=== PATIENT | female | born 1930 | race Caucasian/White ===

== ENCOUNTER → 2017-10-23 | Outpatient (CLI) | payer OTHER ==
[~2017-10-23] MED LIST: ENAL20; Enulose10 GM/15 M PO; FURO100EL PO; HYDCHL50; LEVSOD125; LINZESS145 MCG PO; LORA1; LOSHYD100 PO; NEBI10 PO; POTA8; Percocet 5-3251 EACH PO; SPIR25 PO; WARF2.5 PO; ZOLP12.5
[2017-10-23 14:39] LABS: Bun/Creatinine Ratio 23.4 (12.0-20.0); Calcium, Blood 9.7 mg/dL (8.5-10.1); Creatinine, Blood 1.07 mg/dL (0.40-1.00); Potassium, Blood 4.7 mmol/L (3.5-5.5)
== END | disposition home or self-care (01) ==
LOC: LAB 13:28
PROVIDERS: Internal Medicine
DX: E78.5 Hyperlipidemia, unspecified (principal); E87.1 Hypo-osmolality and hyponatremia; E03.9 Hypothyroidism, unspecified
CPT/HCPCS: 80048

== ENCOUNTER → 2017-12-05 | Outpatient (CLI) | payer OTHER | LOC: LAB 10:24 → LAB SHORT 10:24 | DX: N39.0 Urinary tract infection, site not specified (principal) | CPT/HCPCS: 87086; 87147 ==

== ENCOUNTER → 2018-11-01 | Outpatient (CLI) | payer OTHER | END | disposition home or self-care (01) | LOC: LAB 18:33 → LAB SHORT 18:33 | DX: R30.0 Dysuria (principal) | CPT/HCPCS: 87086; 87147 ==

== ENCOUNTER 2019-08-01 22:10 | Emergency (ER) | payer OTHER ==
[~2019-08-01] VITALS: Ht 167.6 cm; Wt 85.7 kg
[2019-08-01 22:36] LABS: Source, Urine Clean Catch
[2019-08-01 22:38] LABS: Bilirubin, Urine Neg (Neg); Blood, Urine 5+ (Neg); Glucose Qualitative, Urine Neg (Neg); Ketones, Urine 1+ (Neg); Leukocyte Esterase, Urine 1+ (Neg); Nitrite, Urine Neg (Neg); Protein, Urine 4+ (Neg); Specific Gravity, Urine 1.015 (1.003-1.022); Urobilinogen, Urine NORM (Normal); pH, Urine 6.5 (5.0-8.0)
[2019-08-01 22:40] LABS: Appearance, Urine Cloudy (Clear); Color, Urine Red (P-Yellow)
[2019-08-01 22:47] LABS: Bacteria Few /hpf; Red Blood Cells, Urine TNTC /hpf (0-2); Squamous Epithelial Cells Rare /hpf (Few)
[2019-08-01] MEDS ORDERED: Cipro500 MG PO (23:50)
== END 2019-08-02 00:01 | disposition home or self-care (01) ==
LOC: ER 22:10
PROVIDERS: Emergency Medicine
DX: N39.0 Urinary tract infection, site not specified (principal); I11.0 Hypertensive heart disease with heart failure; I50.9 Heart failure, unspecified; F41.9 Anxiety disorder, unspecified; Z88.0 Allergy status to penicillin; Z79.899 Other long term (current) drug therapy
CPT/HCPCS: 81001; 87086; 87147; 99283

== ENCOUNTER 2021-09-11 15:51 | Inpatient (IN) | payer OTHER ==
[~2021-09-11] VITALS: Ht 162.6 cm; Wt 72.6 kg
[~2021-09-11 15:51] MED LIST changes: +Bystolic20 MG PO; +Cipro500 MG PO; +EUTHYROX125 MCG PO; -LEVSOD125; -NEBI10 PO; -SPIR25 PO; +SPIR50 PO; +ZOLP10 PO; -ZOLP12.5
[2021-09-11 16:48] LABS: BASOPHILS ABSOLUTE AUTO 0.04 K/mm3 (0.00-0.23); BASOPHILS PERCENT AUTO 1 % (0-2); EOSINOPHILS ABSOLUTE AUTO 0.02 K/mm3 (0.00-0.68); EOSINOPHILS PERCENT AUTO 0 % (0-6); IMMATURE GRAN ABSOLUTE AUTO 0.03 K/mm3 (0.00-0.10); IMMATURE GRAN PERCENT AUTO 1 % (0-1); LYMPHOCYTES ABSOLUTE AUTO 0.67 K/mm3 (0.84-5.20); LYMPHOCYTES PERCENT AUTO 11 % (21-46); MONOCYTES ABSOLUTE AUTO 0.35 K/mm3 (0.16-1.47); MONOCYTES PERCENT AUTO 6 % (4-13); Mean Corpuscular HGB 32.7 pg (26.0-34.0); Mean Corpuscular HGB Conc 34.2 g/dL (31.5-36.5); Mean Corpuscular Volume 96 fL (80-100); NEUTROPHILS ABSOLUTE AUTO 5.25 K/mm3 (1.96-9.15); NEUTROPHILS PERCENT AUTO 83 % (41-73); Platelet Count 107 K/mm3 (150-400); RDW Coefficient Variation 14.2 % (11.7-14.2); RDW Standard Deviation 49.8 fL (35.1-46.3); Red Blood Cell Count 3.98 M/mm3 (3.80-5.20); White Blood Cell Count 6.36 K/mm3 (4.00-11.30)
[2021-09-11 16:51] LABS: Mean Platelet Volume 13.1 fL (9.1-12.4)
[2021-09-11 16:53] LABS: International Normalized Ratio 2.92; Prothrombin Time Results 28.6 Sec (9.7-11.5)
[2021-09-11 17:00] LABS: Anion Gap 10 mmol/L (6-16); Blood Urea Nitrogen 38 mg/dL (8-24); Bun/Creatinine Ratio 29.5 (12.0-20.0); CO2, Blood 24 mmol/L (21-32); Calcium, Blood 9.5 mg/dL (8.5-10.1); Chloride, Blood 92 mmol/L (98-108); Creatinine, Blood 1.29 mg/dL (0.40-1.00); Ethanol (Alcohol), Blood, Med <3 mg/dL; Glomerular Filtration Rate 39 (60-); Glucose, Blood 131 mg/dL (70-99); Potassium, Blood 5.3 mmol/L (3.5-5.5); Sodium, Blood 126 mmol/L (136-145); Troponin I 0.414 ng/mL (0.000-0.040)
[2021-09-11 17:07] LABS: Source, Urine Clean Catch
[2021-09-11 17:12] LABS: Appearance, Urine Hazy (Clear); Bilirubin, Urine Neg (Neg); Blood, Urine 1+ (Neg); Color, Urine Yellow (P-Yellow); Glucose Qualitative, Urine Neg (Neg); Ketones, Urine Neg (Neg); Leukocyte Esterase, Urine Neg (Neg); Nitrite, Urine Neg (Neg); Protein, Urine Neg (Neg); Specific Gravity, Urine 1.015 (1.003-1.022); Urobilinogen, Urine NORM (Normal)
[2021-09-11 17:23] LABS: U Amphetamine Screen Not Detected; U Barbituate Screen Not Detected; U Benzodiazapine Screen DETECTED; U Buprenorphine Screen Not Detected; U Cannabinoids Screen Not Detected; U Cocaine Screen Not Detected; U Methadone Screen Not Detected; U Methamphetamine Screen Not Detected; U Opiates Screen Not Detected; U Oxycodone Screen Not Detected; U Phencyclidine Screen Not Detected; U Propoxyphene Screen Not Detected
[2021-09-11 17:35] LABS: Bacteria Many /hpf; Red Blood Cells, Urine 0-2 /hpf (0-2); Squamous Epithelial Cells Many /hpf (Few); White Blood Cells, Urine Rare /hpf (0-5)
[2021-09-11] MEDS ORDERED: Ativan1 MG PO (22:38)
[2021-09-11] MEDS ORDERED: TRAM50 PO (22:40)
[2021-09-11] MEDS ORDERED: LOSARTAN POTAS100 M1 PO (23:13)
--- NOTE | 2021-09-12 07:30 | NUR ---
SHIFT SUMMARY PT WAS A NEW ADMIT DURING THE NIGHT. 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 PT IS A&O X 3, BEDREST. TELE SHOWED AFIB IN THE 50-60S. VITAL SIGNS OTHERWISE STABLE. PT BLE HAVE 4+ PITTING EDEMA. NO C/O ACUTE PAIN, NAUSEA OR SOB. NO OTHER ACUTE CHANGES IN PT CONDITION NOTED SINCE ADMISSION. REPORT GIVEN TO ONCOMING RN.
[2021-09-12 08:47] LABS: BASOPHILS ABSOLUTE AUTO 0.03 K/mm3 (0.00-0.23); BASOPHILS PERCENT AUTO 1 % (0-2); EOSINOPHILS ABSOLUTE AUTO 0.02 K/mm3 (0.00-0.68); EOSINOPHILS PERCENT AUTO 0 % (0-6); Hematocrit 34.9 % (33.0-51.0); Hemoglobin 11.9 g/dL (11.5-16.0); IMMATURE GRAN ABSOLUTE AUTO 0.01 K/mm3 (0.00-0.10); IMMATURE GRAN PERCENT AUTO 0 % (0-1); LYMPHOCYTES ABSOLUTE AUTO 1.09 K/mm3 (0.84-5.20); LYMPHOCYTES PERCENT AUTO 23 % (21-46); MONOCYTES ABSOLUTE AUTO 0.52 K/mm3 (0.16-1.47); MONOCYTES PERCENT AUTO 11 % (4-13); Mean Corpuscular HGB Conc 34.1 g/dL (31.5-36.5); Mean Corpuscular Volume 97 fL (80-100); NEUTROPHILS ABSOLUTE AUTO 3.03 K/mm3 (1.96-9.15); NEUTROPHILS PERCENT AUTO 65 % (41-73); Platelet Count 107 K/mm3 (150-400); RDW Coefficient Variation 14.4 % (11.7-14.2); RDW Standard Deviation 50.8 fL (35.1-46.3); Red Blood Cell Count 3.61 M/mm3 (3.80-5.20)
[2021-09-12 09:06] LABS: International Normalized Ratio 3.11; Prothrombin Time Results 30.3 Sec (9.7-11.5)
[2021-09-12 09:30] LABS: Alanine Aminotransfer (ALT/SGP 23 U/L (12-78); Albumin, Blood 3.3 g/dL (3.4-5.0); Albumin/Globulin Ratio 0.8 (0.8-1.8); Alk Phos 80 U/L (50-136); Anion Gap 8 mmol/L (6-16); Aspartate Aminotrans (AST/SGOT 32 U/L (12-37); Bilirubin, Total 2.2 mg/dL (0.1-1.0); Blood Urea Nitrogen 40 mg/dL (8-24); Bun/Creatinine Ratio 29.2 (12.0-20.0); CHOL/HDL RATIO 2.1; CO2, Blood 28 mmol/L (21-32); Calcium, Blood 9.5 mg/dL (8.5-10.1); Chloride, Blood 94 mmol/L (98-108); Cholesterol 130 mg/dL (50-200); Creatinine, Blood 1.37 mg/dL (0.40-1.00); Globulin, Blood 3.9 g/dL (2.2-4.0); Glomerular Filtration Rate 36 (60-); Glucose, Blood 122 mg/dL (70-99); HDL Cholesterol 63 mg/dL (>39); LDL/HDL RATIO 0.9; Low Density Lipoprotein Chol 57 mg/dL (0-110); Potassium, Blood 4.2 mmol/L (3.5-5.5); Sodium, Blood 130 mmol/L (136-145); Total Protein, Blood 7.2 g/dL (6.4-8.2); Triglycerides 48 mg/dL (30-160); Very Low Density Lipoprot Chol 9 mg/dL (6-32)
[2021-09-12 13:12] LABS: Free Thyroxine 1.38 ng/dL (0.70-1.60); Triiodothyronine, Free 0.84 pg/mL (2.18-3.98)
--- NOTE | 2021-09-12 16:47 | NUR ---
SHIFT SUMMARY PT IS A&O, PLEASANT AND CO-OP WITH CARE. ADMITTED FOR STROKE, WHICH APPEARS TO HAVE RESOLVED. NO NEUR DEFICITS NOTED TODAY. SPEECH EVAL CLEAR. PT ABLE TO WORK WITH PT/OT. DR HAWKINS IN TO SEE PT. 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 CARDIOLOGY CONSULT ORDERED. DR CORBIN TO SEE PT, HOPEFULLY TODAY; TROPONIN ELEVATED, BUT TRENDING DOWN. PT'S BLE'S VERY SWOLLEN; 4+ EDEMA. PT REPORTED THEY HAVE BEEN LIKE THIS FOR ABOUT A YEAR. BNP ELEVATED AT 619. PT RESTING QUIETLY WATCHING TV. DENIED FURTHER NEEDS. CALL LT IN REACH.
[2021-09-12] MEDS ORDERED: TORSE20 PO (18:36)
[2021-09-12] MEDS ORDERED: Ventolin/Prove6.7 GM INH (18:39)
--- NOTE | 2021-09-13 04:41 | NUR ---
WET CROWN BLOCKING OPERATOR SUMMARY PATIENT HAD A FAIR SHIFT. SHE IS ALERT AND ORIENTED. SHE HAD A STABLE V/S ALL THROUGH THE NIGHT. NO COMPLAINTS OVERNIGHT. WILL CONTINUE TO MONITOR HER.
[2021-09-13 05:26] LABS: International Normalized Ratio 2.88; Prothrombin Time Results 28.2 Sec (9.7-11.5)
[2021-09-13 08:55] LABS: Albumin, Blood 3.3 g/dL (3.4-5.0); Anion Gap 9 mmol/L (6-16); Blood Urea Nitrogen 40 mg/dL (8-24); Bun/Creatinine Ratio 31.7 (12.0-20.0); CO2, Blood 26 mmol/L (21-32); Calcium, Blood 9.6 mg/dL (8.5-10.1); Chloride, Blood 97 mmol/L (98-108); Creatinine, Blood 1.26 mg/dL (0.40-1.00); Glomerular Filtration Rate 40 (60-); Glucose, Blood 107 mg/dL (70-99); Phosphorus, Blood 2.2 mg/dL (2.5-4.9); Potassium, Blood 4.2 mmol/L (3.5-5.5); Sodium, Blood 132 mmol/L (136-145)
--- NOTE | 2021-09-13 14:52 | NUR ---
SHIFT SUMMARY PT AWAKE AT START OF SHIFT, SITTING UP TO EOB. PT IS A&O, VERY PLEASANT AND CO-OP. PT WAITING FOR CARDIOLOGY CONSULT AND WANTING TO GO HOME. DR HAWKINS HERE TO SEE PT THIS AM. CARDIOLOGY CONSULT RECALLED TO [facility]. DR RICHMOND BARREL ROLLER OPERATOR TODAY AND WAS TO RECEIVE THE CONSULT. PT CONTINUES TO WAIT. PT UP INDEPENDENTLY TO BTHRM, USING FWW. PT'S BLE'S REMAIN VERY SWOLLEN; PT REPORTING, FOR THE LAST YEAR OR SO. IV LASIX GIVEN. LUNGS T/O WITH CRACKLES ONLY IN UPPER LOBES AND LLL. PT TO RESTART HOME DOSE COUMADIN TONIGHT; PER PHARMACY. REMAINS IN A-FIB ON TELE. DENIES FURTHER NEEDS. CALL LT IN REACH.
--- NOTE | 2021-09-13 16:46 | NUR ---
Initial Pal Care consult/visit completed per referral received to discuss advanced care planning, complete an AD and POLST at request of pt's family, who were required to make medical decisions for pt in ER on this hospital admission. I reviewed EMR, H&P, cardiology consult and all PN prior to contacting pt or family. Pt lives near [place] and [place] the same [place], [place]. FAmily checks on pt frequently and she is normally independent in ADL's despite long standing heart disease and other comorbidities as well as advanced age of 89. When pt was admitted and found to have a NSTEMI, she was able to indicate initially and again confirmed during cardiology consult that she did not want any intervention, including an angiogram, but instead favored medications, medical management and s/s management. Based on this expressed wish, Son and TAYLOR opted for DNR status in advanced care planning conversation with our admitting Dr in ER. In my visit with pt, who was sitting up in bed, alert, oriented and receptive to my visit, She has some ambivalence in regard to CPR and advanced life support/resuscitation. Initially she stated she would want CPR "if it could make her better". I reviewed the mechanics and outcomes associated with CPR and that it could never make her heart "better" only that it may potentially buy her some time with an unknown prognosis or condition afterwards. Pt would like time to ponder this further and I gave her some literature on CPR and advanced care interventions to review and discuss with her family and PCP, who she plans to see in the next week. Pt was given a blank AD and POLST form and I gave her some instruction as well as her dil by phone. I also gave them our contact information in case they had questions while completing them at home. Pt anticipates going home tomorrow. She stated she appreciated the conversation and was candid about her reluctance to think about these things or discuss them in the past. I stressed that it would be a gift for her family to know her wishes so they could honor them and have some peace about knowing it was what she would want. I also stressed that the POLST and AD only came into need if she was not alert/oriented enough to direct her care. She is currently a solid decision maker for herself but according to EMR and family could not do so when she was in the ER. Talia acknowledged that she "was not thinking straight" while acutely ill. I called TAYLOR a second time to report on my visit with Talia and let her know about the materials I provided for her to take home for all of them to review. Elsa expressed appreciation for the visit and conversation with pt and her.
--- NOTE | 2021-09-14 04:39 | NUR ---
ICING AND GLAZE MAKER SUMMARY PATIENT IS VERY PLEASANT, HAD A FAIR SHIFT. V/S WERE STABLE. THE BP WAS A LITTLE LOW. SHE HAD A GOOD NIGHT SLEEP, SHE REQUESTED FOR TYLENOL WHICH WAS ADMINISTERED. OTHERWISE NO OTHER COMPLAINT COMPLAINT.
[2021-09-14 04:41] LABS: International Normalized Ratio 2.6; Prothrombin Time Results 25.6 Sec (9.7-11.5)
[2021-09-14 04:58] LABS: Albumin, Blood 2.9 g/dL (3.4-5.0); Anion Gap 7 mmol/L (6-16); Blood Urea Nitrogen 29 mg/dL (8-24); Bun/Creatinine Ratio 30.4 (12.0-20.0); CO2, Blood 28 mmol/L (21-32); Calcium, Blood 9.4 mg/dL (8.5-10.1); Chloride, Blood 101 mmol/L (98-108); Creatinine, Blood 0.95 mg/dL (0.40-1.00); Glomerular Filtration Rate 55 (60-); Glucose, Blood 101 mg/dL (70-99); Phosphorus, Blood 2.3 mg/dL (2.5-4.9); Potassium, Blood 3.7 mmol/L (3.5-5.5); Sodium, Blood 136 mmol/L (136-145)
[2021-09-14] MEDS ORDERED: POTA10T PO (12:56)
[2021-09-14] MEDS ORDERED: ASPI81CH PO (12:56)
[2021-09-14] MEDS ORDERED: ATOR40TA PO (12:56)
[2021-09-14] MEDS ORDERED: TORSE20 PO (12:57)
--- NOTE | 2021-09-14 14:48 | NUR ---
DISCHARGE PT DISCHARGED HOME AT 1405. DISCHARGE INFORMATION GONE OVER WITH PT AND JAKE IN LAW, IV PULLED, AND PT HAD ALL BELONGINGS IN A BAG
== END 2021-09-14 13:45 | DRG 69 ==
LOC: ER 15:51 → MEDS 20:04
PROVIDERS: Family Medicine; Student in an Organized Health Care Education/Training Program; ADMIT Internal Medicine
DX: G45.9 Transient cerebral ischemic attack, unspecified (principal); I50.31 Acute diastolic (congestive) heart failure; I21.4 Non-ST elevation (NSTEMI) myocardial infarction; I13.0 Hypertensive heart and chronic kidney disease with heart failure and stage 1 through stage 4 chronic kidney disease, or unspecified chronic kidney disease; I48.11 Longstanding persistent atrial fibrillation; R47.01 Aphasia; E87.1 Hypo-osmolality and hyponatremia; Z66 Do not resuscitate; Z53.20 Procedure and treatment not carried out because of patient's decision for unspecified reasons; M54.9 Dorsalgia, unspecified; G89.29 Other chronic pain; F41.9 Anxiety disorder, unspecified; I35.0 Nonrheumatic aortic (valve) stenosis; L40.9 Psoriasis, unspecified; E03.9 Hypothyroidism, unspecified; M51.36 Other intervertebral disc degeneration, lumbar region; D69.6 Thrombocytopenia, unspecified; N18.30 Chronic kidney disease, stage 3 unspecified; Z85.3 Personal history of malignant neoplasm of breast; Z90.710 Acquired absence of both cervix and uterus; Z90.11 Acquired absence of right breast and nipple; Z88.0 Allergy status to penicillin; Z88.1 Allergy status to other antibiotic agents; Z88.8 Allergy status to other drugs, medicaments and biological substances; Z79.01 Long term (current) use of anticoagulants; Z79.899 Other long term (current) drug therapy
CPT/HCPCS: 36415; 70450; 71045; 80048; 80053; 80061; 80069; 81001; 83880; 84439; 84443; 84481; 84484; 85025; 85610; 87086; 92610; 93005; 93010; 93306; 93880; 93970; 97110; 97162; 99285-25; A9270; G0480; J1940; J7030; P9612

== ENCOUNTER → 2021-09-22 | Outpatient (CLI) | payer OTHER ==
[~2021-09-22] MED LIST changes: +ASPI81CH PO; +ATOR40TA PO; +Ativan1 MG PO; +LOSARTAN POTAS100 M1 PO; +POTA10T PO; +TORSE20 PO; +TRAM50 PO; +Ventolin/Prove6.7 GM INH
[2021-09-22 19:11] LABS: Potassium, Blood 4.5 mmol/L (3.5-5.5)
== END | disposition home or self-care (01) ==
LOC: LAB SHORT 13:55
PROVIDERS: Nurse Practitioner Family
DX: I13.0 Hypertensive heart and chronic kidney disease with heart failure and stage 1 through stage 4 chronic kidney disease, or unspecified chronic kidney disease (principal); I50.31 Acute diastolic (congestive) heart failure; N18.30 Chronic kidney disease, stage 3 unspecified; E03.9 Hypothyroidism, unspecified; H81.90 Unspecified disorder of vestibular function, unspecified ear
CPT/HCPCS: 80051

== ENCOUNTER 2021-10-14 19:21 | Inpatient (IN) | payer OTHER ==
[~2021-10-14] VITALS: Ht 167.6 cm; Wt 69.4 kg
[~2021-10-14 19:21] MED LIST changes: -EUTHYROX125 MCG PO; +LEVSOD137 PO
[2021-10-14 20:18] LABS: BASOPHILS ABSOLUTE AUTO 0.02 K/mm3 (0.00-0.23); BASOPHILS PERCENT AUTO 0 % (0-2); EOSINOPHILS ABSOLUTE AUTO 0.06 K/mm3 (0.00-0.68); EOSINOPHILS PERCENT AUTO 1 % (0-6); Hematocrit 40.2 % (33.0-51.0); IMMATURE GRAN ABSOLUTE AUTO 0.02 K/mm3 (0.00-0.10); IMMATURE GRAN PERCENT AUTO 0 % (0-1); LYMPHOCYTES ABSOLUTE AUTO 0.94 K/mm3 (0.84-5.20); LYMPHOCYTES PERCENT AUTO 14 % (21-46); MONOCYTES ABSOLUTE AUTO 0.72 K/mm3 (0.16-1.47); MONOCYTES PERCENT AUTO 11 % (4-13); Mean Corpuscular HGB 32.5 pg (26.0-34.0); Mean Corpuscular HGB Conc 34.8 g/dL (31.5-36.5); Mean Corpuscular Volume 93 fL (80-100); NEUTROPHILS ABSOLUTE AUTO 5.12 K/mm3 (1.96-9.15); NEUTROPHILS PERCENT AUTO 74 % (41-73); Platelet Count 125 K/mm3 (150-400); RDW Coefficient Variation 14.7 % (11.7-14.2); Red Blood Cell Count 4.31 M/mm3 (3.80-5.20); White Blood Cell Count 6.88 K/mm3 (4.00-11.30)
[2021-10-14 20:19] LABS: Mean Platelet Volume 13.8 fL (9.1-12.4)
[2021-10-14 20:53] LABS: Albumin/Globulin Ratio 0.9 (0.8-1.8); Bilirubin, Total 1.4 mg/dL (0.1-1.0); Calcium, Blood 10.1 mg/dL (8.5-10.1); Creatinine, Blood 2.76 mg/dL (0.40-1.00); Globulin, Blood 4.4 g/dL (2.2-4.0); Potassium, Blood 5.6 mmol/L (3.5-5.5); Total Protein, Blood 8.4 g/dL (6.4-8.2)
[2021-10-14 21:28] LABS: Prothrombin Time Results 54.9 Sec (9.7-11.5)
[2021-10-14 21:31] LABS: International Normalized Ratio 5.87
[2021-10-15 00:15] LABS: Magnesium, Blood 1.9 mg/dL (1.6-2.4)
[2021-10-15 00:19] LABS: Albumin, Blood 3.4 g/dL (3.4-5.0); Anion Gap 9 mmol/L (6-16); Blood Urea Nitrogen 97 mg/dL (8-24); Bun/Creatinine Ratio 36.6 (12.0-20.0); CO2, Blood 26 mmol/L (21-32); Calcium, Blood 9.6 mg/dL (8.5-10.1); Chloride, Blood 87 mmol/L (98-108); Creatinine, Blood 2.65 mg/dL (0.40-1.00); Glomerular Filtration Rate 17 (60-); Glucose, Blood 131 mg/dL (70-99); Phosphorus, Blood 3.8 mg/dL (2.5-4.9); Potassium, Blood 5.3 mmol/L (3.5-5.5); Sodium, Blood 122 mmol/L (136-145)
--- NOTE | 2021-10-15 02:08 | NUR ---
NEW PT FROM THE ED. CAME IN WITH ABNORMAL LABS AND POSSIBLE RENAL FAILURE. PT HAS BILAT LE EDEMA +1, NO COMPLAINTS OF SOB AT THIS TIME. IN THE ED PT POTASSIUM LEVEL WAS 5.6 REDRAW AT 2300 CAME BACK AT 5.3, NO CORRECTION WAS GIVEN DOWN IN THE ED. THIS RN CALLED DR MONGE AND WAS GIVEN ORDERS TO HOLD ON THE POTASSIUM PROTOCOL MEDICATIONS AND TO KEEP NS RUNNING AT 50ML. PT HAS BEEN NOTED TO HAVE LOW HR IN THE 30'S WITH AFIB, PT IS NOT SYMPTOMATIC. OTHER VITALS REMAIN STABLE AT THIS TIME. PT CALL LIGHT AND BELONGINGS ARE WITHIN REACH.
[2021-10-15 03:14] LABS: BASOPHILS ABSOLUTE AUTO 0.02 K/mm3 (0.00-0.23); BASOPHILS PERCENT AUTO 0 % (0-2); EOSINOPHILS ABSOLUTE AUTO 0.06 K/mm3 (0.00-0.68); EOSINOPHILS PERCENT AUTO 1 % (0-6); Hematocrit 36.8 % (33.0-51.0); Hemoglobin 12.9 g/dL (11.5-16.0); IMMATURE GRAN ABSOLUTE AUTO 0.02 K/mm3 (0.00-0.10); IMMATURE GRAN PERCENT AUTO 0 % (0-1); LYMPHOCYTES ABSOLUTE AUTO 0.84 K/mm3 (0.84-5.20); LYMPHOCYTES PERCENT AUTO 14 % (21-46); MONOCYTES ABSOLUTE AUTO 0.51 K/mm3 (0.16-1.47); MONOCYTES PERCENT AUTO 8 % (4-13); Mean Corpuscular HGB 32.7 pg (26.0-34.0); Mean Corpuscular HGB Conc 35.1 g/dL (31.5-36.5); Mean Corpuscular Volume 93 fL (80-100); NEUTROPHILS ABSOLUTE AUTO 4.69 K/mm3 (1.96-9.15); NEUTROPHILS PERCENT AUTO 76 % (41-73); Platelet Count 93 K/mm3 (150-400); RDW Coefficient Variation 14.6 % (11.7-14.2); RDW Standard Deviation 50.2 fL (35.1-46.3); Red Blood Cell Count 3.94 M/mm3 (3.80-5.20); White Blood Cell Count 6.14 K/mm3 (4.00-11.30)
[2021-10-15 03:16] LABS: Mean Platelet Volume 14.2 fL (9.1-12.4)
[2021-10-15 03:29] LABS: Albumin, Blood 3.4 g/dL (3.4-5.0); Anion Gap 11 mmol/L (6-16); Blood Urea Nitrogen 99 mg/dL (8-24); CO2, Blood 24 mmol/L (21-32); Calcium, Blood 9.4 mg/dL (8.5-10.1); Chloride, Blood 89 mmol/L (98-108); Creatinine, Blood 2.54 mg/dL (0.40-1.00); Glomerular Filtration Rate 18 (60-); Glucose, Blood 128 mg/dL (70-99); Phosphorus, Blood 3.8 mg/dL (2.5-4.9); Potassium, Blood 5.4 mmol/L (3.5-5.5); Sodium, Blood 124 mmol/L (136-145)
--- NOTE | 2021-10-15 05:52 | NUR ---
PT IS AWAKE THIS MORNING. A & O X4, PT IS VERY PLEASANT, HER DAUGHTER WAS ABLE TO GIVE A GOOD FULL DETAIL HISTORY SHE MANAGES AND HELPS THE PT OUT THE MOST. PT APPARENTLY FELL IN THE AM ON 10/14 WHICH WAS NOT WITNESSED BUT THE PT DID HAVE MUTIPLE FRESH BRUISES ON ADMISSION. PT STATED SHE DID NOT HIT HER HEAD OR LOC AFTER THE FALL. PT CAN ANSWER QUESTIONS APPROPRIATELY, NO NERUO DEFICETS NOTED DURING THE SHIFT. CALL LIGHT AND BELONGINGS WITHIN REACH.
[2021-10-15 08:21] LABS: Albumin, Blood 3.3 g/dL (3.4-5.0); Anion Gap 13 mmol/L (6-16); Blood Urea Nitrogen 95 mg/dL (8-24); Bun/Creatinine Ratio 41.5 (12.0-20.0); CO2, Blood 23 mmol/L (21-32); Calcium, Blood 9.3 mg/dL (8.5-10.1); Chloride, Blood 91 mmol/L (98-108); Creatinine, Blood 2.29 mg/dL (0.40-1.00); Glomerular Filtration Rate 20 (60-); Glucose, Blood 110 mg/dL (70-99); Phosphorus, Blood 3.6 mg/dL (2.5-4.9); Potassium, Blood 4.8 mmol/L (3.5-5.5); Sodium, Blood 127 mmol/L (136-145)
--- NOTE | 2021-10-15 10:41 | NUR ---
PATIENT ALERT & ORIENTED X 4, ABLE TO VERBALIZE NEEDS. NO SOB, NO DISTRESS, DENIES CHEST PAIN. PER TELE MONITOR PATIENT HR HAS BEEN IN THE 30'S. DR. PINO NOTIFIED. PATIENT HAS MULTIPLE BRUISING DUE TO FALL. COOPERATIVE WITH CARE.
[2021-10-15 11:17] LABS: Albumin, Blood 3.2 g/dL (3.4-5.0); Anion Gap 10 mmol/L (6-16); Blood Urea Nitrogen 95 mg/dL (8-24); Bun/Creatinine Ratio 41.9 (12.0-20.0); CO2, Blood 25 mmol/L (21-32); Calcium, Blood 9.2 mg/dL (8.5-10.1); Chloride, Blood 92 mmol/L (98-108); Creatinine, Blood 2.27 mg/dL (0.40-1.00); Glomerular Filtration Rate 20 (60-); Glucose, Blood 122 mg/dL (70-99); Phosphorus, Blood 3.4 mg/dL (2.5-4.9); Potassium, Blood 4.7 mmol/L (3.5-5.5); Sodium, Blood 127 mmol/L (136-145)
--- NOTE | 2021-10-15 14:18 | NUR ---
RECIEVED A CALL FROM TELE- PT HR DROPPING INTO THE 20'S AT THIS TIME, PT WAS SLEEPING, FAMILY AT THE BEDSIDE. NO S&S OF DISTRESS NOTED. CALLED DR PINO WHO IS AWARE OF THE PT BRADYCARDIA HOWEVER THIS IS LOWER THAN BEFORE AND THE PT IS HAVING PAUSES ABOUT 3 SECONDS IN LENGTH.
[2021-10-15 15:09] LABS: Prothrombin Time Results 45.4 Sec (9.7-11.5)
[2021-10-15 15:19] LABS: International Normalized Ratio 4.79
--- NOTE | 2021-10-15 15:36 | NUR ---
15:00 PATIENT HR INTO 20'S, WITH PAUSES OF ABOUT 3 SECONDS, CALL WAS PLEASE TO DR PINO, ORDER RECEIVED TO TRANSFER PATIENT TO PCU. CALL REPORTED TO CHARGE NURSE, SHANNON. PATIENT TRANSFERRED TO PCU 3.
[2021-10-15] MEDS ORDERED: Ativan1 MG PO (17:12)
[2021-10-15] MEDS ORDERED: THERA-D2000 UNIT PO (17:13)
[2021-10-15] MEDS ORDERED: SPIR50 PO (17:15)
--- NOTE | 2021-10-15 18:14 | NUR ---
END OF SHIFT: PATIENT HAS INFUSING 50Ml OF NS AT THIS TIME, IS A SBA, CARDIAC DIET AND Q2 TURNS THAT HAVE BEEN PREFORMED BY SELF, PCT'S, AND OTHER AGENCIES SUCH IMAGING. NO IMAGES OF THE COCCYX BUT A MEPILEX HAS BEEN PLACED ON THE COCCYX TO PREVENT FURTHER BREAKDOWN. PATIENT IS ALERT AND ORIENTED AT THIS TIME SOME SENSORY IMPAIRMENT SHE HAS BEEN DEVELOPING THIS VERY MILD SKIN BREAKDOWN AND DOES NOT ADMIT TO PAIN. PATIENT IS ON ROOM AIR WITH NO CONCERNS AT THIS TIME. PATIENT ADDITIONALLY DENIES CHEST PAIN, SOB. ONLY PAIN IS FROM RECENT FALL AT HOME, TO WHICH SHE BRUISED THE UNDERSIDE OF HER LEFT BREAST TO THE LEFT SCAPULA, LEFT KNEE HAS SOME SWELLING AND BRUISING, HOWEVER, SHE WAS SUPRATHERAPUETIC WITH HER INR AND HAS SCATTERED BRUISING THROUGHOUT CREATININE KINASE 114. PATIENT IS INCONTINENT AT TIMES WITH A BREIF IN PLACE, HOWEVER, DOES INFORM STAFF OF NEEDING TO USE THE RESTROOM. PLAN FOR MEDICAL MANGAGEMENT OF HER BRADYCARDIA AND THEN PROCEED FROM THEIR. WILL CONTINUE TO MONITOR PATIENT. IV IN THE LEFT FOREARM HAS BEEN WNL INFUSING. BLOOD PRESSURE HAS BEEN LOWER, WITH THE NAHOMY, COMPUTER AIDED DESIGN DESIGNER OF AWARE, MONITOR, NO NEW ORDERS.
[2021-10-15 18:30] LABS: Source, Urine Clean Catch
[2021-10-15 18:33] LABS: Bilirubin, Urine Neg (Neg); Blood, Urine 3+ (Neg); Glucose Qualitative, Urine Neg (Neg); Ketones, Urine Neg (Neg); Leukocyte Esterase, Urine 3+ (Neg); Nitrite, Urine Neg (Neg); Protein, Urine 2+ (Neg); Specific Gravity, Urine 1.015 (1.003-1.022); Urobilinogen, Urine NORM (Normal)
[2021-10-15 18:46] LABS: Appearance, Urine Cloudy (Clear); Color, Urine Pale Yellow (P-Yellow)
[2021-10-15 18:47] LABS: Bacteria Many /hpf; Squamous Epithelial Cells Few /hpf (Few); Yeast/Fungi Urine Rare /hpf
[2021-10-15 18:48] LABS: Amorphous Light (0-Heavy)
[2021-10-16 03:58] LABS: Hematocrit 32.7 % (33.0-51.0); Hemoglobin 11.5 g/dL (11.5-16.0)
[2021-10-16 04:17] LABS: International Normalized Ratio 3.79; Prothrombin Time Results 36.5 Sec (9.7-11.5)
[2021-10-16 04:25] LABS: Albumin, Blood 3.1 g/dL (3.4-5.0); Anion Gap 6 mmol/L (6-16); Blood Urea Nitrogen 79 mg/dL (8-24); Bun/Creatinine Ratio 48.2 (12.0-20.0); CO2, Blood 26 mmol/L (21-32); Calcium, Blood 9.1 mg/dL (8.5-10.1); Chloride, Blood 99 mmol/L (98-108); Creatinine, Blood 1.64 mg/dL (0.40-1.00); Glomerular Filtration Rate 29 (60-); Glucose, Blood 100 mg/dL (70-99); Phosphorus, Blood 3.1 mg/dL (2.5-4.9); Potassium, Blood 4.7 mmol/L (3.5-5.5); Sodium, Blood 131 mmol/L (136-145); Uric Acid, Blood 10.1 mg/dL (2.6-6.0)
[2021-10-16 06:10] LABS: Free Thyroxine 1.23 ng/dL (0.70-1.60); Triiodothyronine, Free 0.86 pg/mL (2.18-3.98)
--- NOTE | 2021-10-16 06:13 | NUR ---
No acute changes overnight. Atrial fibrillation with rates primarily in the 50s - 60s and a few pauses noted, all less than 4 seconds and the longest pause measuring out at 3.7 per telemetry monitoring. Diastolic blood pressure improving compared to previous day (see EMR for documented vital signs). Pt was up to the bathroom with use of walker and stand by assistance from staff. No complaints of dizziness upon standing, nor with ambulation, and patient's gait is steady. Pt does complain of pain to the left shoulder blade and into the mid upper back, and does get relief from PO tramadol and tylenol. Pt does have some limited range of motion to that left shoulder secondary to pain with slight movement. Bruising noted to left lateral trunk, superior to the flank, as well as to right mid back. Pt confirms having had at least two falls at home in the past week, denies any dizziness or loss of consciousness with either fall. 3/6 morning lab results show improvement in creatinine from 2.27 to 1.64, in serum sodium from 127 to 131, and the INR dropped from 4.79 to 3.79. past week,
--- NOTE | 2021-10-16 15:47 | NUR ---
END OF SHIFT SUMMARY: PATIENT CONTINUES TO IMPROVE, ALL LABS TRENDING IN THE APPROPRIATE DIRECTION, NO LONGER INFUSING NS. PATIENT RECIEVING CYTOMEL IN CONJUNCTION WITH LEVOTHYROXINE DUE TO LOW THYROID, AND LOW T3. PATIENT DENIES CHEST PAIN OR SOB, HAS BEEN A 1 ASSIST TO BATHROOM, DUE TO HISTORY OF FALLS, Q2 HOUR TURNS, HAS BEEN PLEASANTLY ALERT AND ORIENTED AT THIS TIME. HAVE NOT GIVEN ANY BENZODIAPINE, NO SIGNS OF WITHDRAWAL AT THIS TIME WILL CONTINUE TO MONITOR. PATINET HAS BEEN 96%SPO2 OR GREATER, ON RA. CARDIOLOGY CHECKED IN THIS AM, CONTINUE TO OBSERVE. DR. MONGE STOPPED BY NOT CONSULTED AT THIS TIME, DR. PINO HOSPITALIST TODAY. OVERALL PATIENT IS CONTINUING TO IMPROVE WITH TIME, WILL CONTINUE TO MONITOR.
--- NOTE | 2021-10-16 17:44 | NUR ---
Extenisve conversation with DIL about her sedative medications and living situation. will review with physcian reducing her medications. Review with family strategies of care. They are trying to find reliable caregivers. suggested cameras and monitors [place].
--- NOTE | 2021-10-17 00:13 | NUR ---
PATIENT REMAINS IN BED WITH NO SIGNS OF ACUTE DISTRESS NOTED. ALERT AND ORIENTED TIME 4. ON ASSESSMENT PATIENT WAS ABLE TO MOVE ALL EXTREMITIES AND DENIES PAIN UPON MOVEMENT. MONITORING HR AT THIS TIME PATIENT SLEEPING WITH RATE DROPPING IN THE LOW 49-50's. PATIENT TRANSFER WITH STANDBY ASISST USING WALKER. CONTINUE TO MONITOR PATIENT CONDITON. TURNED AND REPOSITION 2 HOURS. SKIN WITH MULTIPLE BRUSING DUE TO FALL BUT INTACT. DRSG TO COCCYX AREA.
[2021-10-17 03:53] LABS: Hematocrit 34.9 % (33.0-51.0); Hemoglobin 11.8 g/dL (11.5-16.0)
[2021-10-17 04:08] LABS: International Normalized Ratio 2.64
[2021-10-17 04:12] LABS: Albumin, Blood 3.2 g/dL (3.4-5.0); Anion Gap 6 mmol/L (6-16); Blood Urea Nitrogen 61 mg/dL (8-24); CO2, Blood 27 mmol/L (21-32); Calcium, Blood 9.7 mg/dL (8.5-10.1); Chloride, Blood 101 mmol/L (98-108); Creatinine, Blood 1.27 mg/dL (0.40-1.00); Glomerular Filtration Rate 40 (60-); Glucose, Blood 125 mg/dL (70-99); Magnesium, Blood 2.1 mg/dL (1.6-2.4); Phosphorus, Blood 2.3 mg/dL (2.5-4.9); Potassium, Blood 4.5 mmol/L (3.5-5.5); Sodium, Blood 134 mmol/L (136-145)
[2021-10-17] MEDS ORDERED: LIOT5 PO (10:21)
[2021-10-17] MEDS ORDERED: SODCHL1 PO (10:21)
[2021-10-17] MEDS ORDERED: TRAM50 PO (10:22)
[2021-10-17] MEDS ORDERED: DOCU100 PO (10:22)
[2021-10-17] MEDS ORDERED: MIRALAX17 GM PO (10:23)
--- NOTE | 2021-10-17 13:49 | NUR ---
DISCHARGE SUMMARY: PATIENT WAS TRANSPORTED TO [facility] VIA WHEEL CHAIR BY PATIENT OPEN DIE INSPECTOR, PATIENT DENIES CHEST PAIN, SOB. DISCHARGE INSTRUCTIONS WE GIVEN AND UNDERSTOOD COMPLETELY WITH NO QUESTIONS COMMENTS OR CONCERNS. DR PINO HOSPITALIST, ALSO VERIFIED MEDICATIONS WITH DAUGHTER IN LAW. PATIENT WILL BE DISCHARGED WITH HH, NEEDING PCP FOLLOW UP AND IS FOLLOWING UP WITH CARDIOLOGYIV ASSESSED. STUDENT RN REMOVED IV WNL, TELE DC'D BY PCT, AND ALL BELONGINGS ARE WITH THE PATIENT.
== END 2021-10-17 13:09 | disposition home or self-care (01) | DRG 683 ==
LOC: ER 19:21 → PCU 21:59 → MEDS 21:59 → PCU 10-15 15:12
PROVIDERS: Emergency Medicine; Family Medicine; Internal Medicine Nephrology; Student in an Organized Health Care Education/Training Program; ADMIT Internal Medicine
DX: N17.9 Acute kidney failure, unspecified (principal); E87.1 Hypo-osmolality and hyponatremia; I13.0 Hypertensive heart and chronic kidney disease with heart failure and stage 1 through stage 4 chronic kidney disease, or unspecified chronic kidney disease; I48.21 Permanent atrial fibrillation; Z66 Do not resuscitate; E86.0 Dehydration; E87.5 Hyperkalemia; E88.09 Other disorders of plasma-protein metabolism, not elsewhere classified; R00.1 Bradycardia, unspecified; K59.00 Constipation, unspecified; R79.1 Abnormal coagulation profile; E87.8 Other disorders of electrolyte and fluid balance, not elsewhere classified; I50.9 Heart failure, unspecified; F41.9 Anxiety disorder, unspecified; M25.562 Pain in left knee; L89.109 Pressure ulcer of unspecified part of back, unspecified stage; N18.30 Chronic kidney disease, stage 3 unspecified; M54.9 Dorsalgia, unspecified; G89.29 Other chronic pain; Z28.21 Immunization not carried out because of patient refusal; E03.9 Hypothyroidism, unspecified; M19.90 Unspecified osteoarthritis, unspecified site; Z88.0 Allergy status to penicillin; Z88.8 Allergy status to other drugs, medicaments and biological substances; Z79.01 Long term (current) use of anticoagulants; Z79.82 Long term (current) use of aspirin; Z79.899 Other long term (current) drug therapy; Z85.3 Personal history of malignant neoplasm of breast; Z90.11 Acquired absence of right breast and nipple; Z90.710 Acquired absence of both cervix and uterus
CPT/HCPCS: 36415; 71046; 73562-LT; 76770; 80053; 80069; 81001; 82533; 82550; 83735; 84439; 84443; 84481; 84550; 85014; 85018; 85025; 85610; 87086; 93005; 93010; 96360; 96361; 97110; 97116; 97161; 97165; 97530; 99285-25; A9270; J7030; J7799

== ENCOUNTER → 2021-10-21 | Outpatient (CLI) | payer OTHER ==
[~2021-10-21] MED LIST changes: +DOCU100 PO; +LIOT5 PO; +MIRALAX17 GM PO; +SODCHL1 PO; +THERA-D2000 UNIT PO
[2021-10-21 19:10] LABS: BASOPHILS ABSOLUTE AUTO 0.03 K/mm3 (0.00-0.23); BASOPHILS PERCENT AUTO 0 % (0-2); EOSINOPHILS ABSOLUTE AUTO 0.05 K/mm3 (0.00-0.68); EOSINOPHILS PERCENT AUTO 1 % (0-6); Hematocrit 25.5 % (33.0-51.0); Hemoglobin 8.9 g/dL (11.5-16.0); IMMATURE GRAN ABSOLUTE AUTO 0.05 K/mm3 (0.00-0.10); IMMATURE GRAN PERCENT AUTO 1 % (0-1); LYMPHOCYTES ABSOLUTE AUTO 1.12 K/mm3 (0.84-5.20); LYMPHOCYTES PERCENT AUTO 14 % (21-46); MONOCYTES ABSOLUTE AUTO 1.11 K/mm3 (0.16-1.47); MONOCYTES PERCENT AUTO 14 % (4-13); Mean Corpuscular HGB 33.7 pg (26.0-34.0); Mean Corpuscular HGB Conc 34.9 g/dL (31.5-36.5); Mean Corpuscular Volume 97 fL (80-100); NEUTROPHILS ABSOLUTE AUTO 5.75 K/mm3 (1.96-9.15); NEUTROPHILS PERCENT AUTO 71 % (41-73); Platelet Count 135 K/mm3 (150-400); RDW Coefficient Variation 15.6 % (11.7-14.2); RDW Standard Deviation 54.9 fL (35.1-46.3); Red Blood Cell Count 2.64 M/mm3 (3.80-5.20); White Blood Cell Count 8.11 K/mm3 (4.00-11.30)
[2021-10-21 19:12] LABS: Mean Platelet Volume 13.3 fL (9.1-12.4)
[2021-10-21 19:26] LABS: Albumin, Blood 3.2 g/dL (3.4-5.0); Anion Gap 7 mmol/L (6-16); Blood Urea Nitrogen 42 mg/dL (8-24); Bun/Creatinine Ratio 32.8 (12.0-20.0); CO2, Blood 27 mmol/L (21-32); Calcium, Blood 8.9 mg/dL (8.5-10.1); Chloride, Blood 96 mmol/L (98-108); Creatinine, Blood 1.28 mg/dL (0.40-1.00); Free Thyroxine 1.51 ng/dL (0.70-1.60); Glomerular Filtration Rate 39 (60-); Glucose, Blood 131 mg/dL (70-99); Phosphorus, Blood 2.5 mg/dL (2.5-4.9); Potassium, Blood 4.1 mmol/L (3.5-5.5); Sodium, Blood 130 mmol/L (136-145)
[2021-10-21 19:28] LABS: Albumin, Blood 3.2 g/dL (3.4-5.0); Bilirubin, Total 2.7 mg/dL (0.1-1.0); Bun/Creatinine Ratio 37.3 (12.0-20.0); Calcium, Blood 9.2 mg/dL (8.5-10.1); Creatinine, Blood 1.18 mg/dL (0.40-1.00); Globulin, Blood 3.2 g/dL (2.2-4.0); Potassium, Blood 4.1 mmol/L (3.5-5.5); Total Protein, Blood 6.4 g/dL (6.4-8.2)
== END | disposition home or self-care (01) ==
LOC: LAB SHORT 17:40
PROVIDERS: Internal Medicine Nephrology; Nurse Practitioner Family
DX: Z11.9 Encounter for screening for infectious and parasitic diseases, unspecified (principal); I13.0 Hypertensive heart and chronic kidney disease with heart failure and stage 1 through stage 4 chronic kidney disease, or unspecified chronic kidney disease; N18.2 Chronic kidney disease, stage 2 (mild); D63.1 Anemia in chronic kidney disease; D51.8 Other vitamin B12 deficiency anemias; E55.9 Vitamin D deficiency, unspecified; N25.81 Secondary hyperparathyroidism of renal origin; E78.00 Pure hypercholesterolemia, unspecified; D69.6 Thrombocytopenia, unspecified; R76.0 Raised antibody titer; R94.5 Abnormal results of liver function studies
CPT/HCPCS: 80053; 80069; 84100; 84439; 84443; 84480; 85018; 85025

== ENCOUNTER → 2021-10-27 | Outpatient (CLI) | payer OTHER ==
[~2021-10-27] MED LIST changes: +ACET500 PO; +CEPH500 PO; +IPRAT-ALBUT 0.5-3 ML; +IPRAT-ALBUT 0.5-3 ML INH; +LORA.5 PO; +MAGNESIUM GLYC120 MG PO; +MAGNESIUM OXID500 MG PO; +MIRALAX11910 PO; +PRED20 PO; +VISBIOME 112.51 EACH PO
[2021-10-27 17:37] LABS: Source, Urine Clean Catch
[2021-10-27 18:51] LABS: Hematocrit 31.4 % (33.0-51.0); Hemoglobin 10.6 g/dL (11.5-16.0); Mean Corpuscular HGB 33.2 pg (26.0-34.0); Mean Corpuscular HGB Conc 33.8 g/dL (31.5-36.5); Mean Corpuscular Volume 98 fL (80-100); Platelet Count 194 K/mm3 (150-400); RDW Coefficient Variation 15.4 % (11.7-14.2); RDW Standard Deviation 55.8 fL (35.1-46.3); Red Blood Cell Count 3.19 M/mm3 (3.80-5.20); White Blood Cell Count 7.13 K/mm3 (4.00-11.30)
[2021-10-27 18:59] LABS: Appearance, Urine Clear (Clear); Bilirubin, Urine Neg (Neg); Blood, Urine Neg (Neg); Color, Urine Yellow (P-Yellow); Glucose Qualitative, Urine Neg (Neg); Ketones, Urine Neg (Neg); Leukocyte Esterase, Urine 1+ (Neg); Nitrite, Urine Neg (Neg); Protein, Urine Neg (Neg); Specific Gravity, Urine 1.015 (1.003-1.022); Urobilinogen, Urine NORM (Normal)
[2021-10-27 19:01] LABS: Mean Platelet Volume 13.2 fL (9.1-12.4)
[2021-10-27 19:37] LABS: Bacteria Mod /hpf; Red Blood Cells, Urine 0-2 /hpf (0-2); Squamous Epithelial Cells Few /hpf (Few); Transitional Epithelial Cells Rare /hpf (0-Rare); White Blood Cells, Urine 25-50 /hpf (0-5)
== END | disposition home or self-care (01) ==
LOC: LAB 11:00 → LAB SHORT 11:00
PROVIDERS: Nurse Practitioner Family
DX: Z11.9 Encounter for screening for infectious and parasitic diseases, unspecified (principal); I48.91 Unspecified atrial fibrillation
CPT/HCPCS: 81001; 85027

== ENCOUNTER → 2021-11-03 | Outpatient (CLI) | payer OTHER ==
[~2021-11-03] MED LIST changes: -ACET500 PO; -CEPH500 PO; -IPRAT-ALBUT 0.5-3 ML; -IPRAT-ALBUT 0.5-3 ML INH; -LORA.5 PO; -MAGNESIUM GLYC120 MG PO; -MAGNESIUM OXID500 MG PO; -MIRALAX11910 PO; -VISBIOME 112.51 EACH PO
[2021-11-03 19:38] LABS: Albumin, Blood 3.5 g/dL (3.4-5.0); Anion Gap 4 mmol/L (6-16); Blood Urea Nitrogen 26 mg/dL (8-24); Bun/Creatinine Ratio 23.9 (12.0-20.0); CO2, Blood 33 mmol/L (21-32); Calcium, Blood 9.5 mg/dL (8.5-10.1); Chloride, Blood 93 mmol/L (98-108); Creatinine, Blood 1.09 mg/dL (0.40-1.00); Glomerular Filtration Rate 47 (60-); Glucose, Blood 155 mg/dL (70-99); Phosphorus, Blood 2.7 mg/dL (2.5-4.9); Potassium, Blood 3.5 mmol/L (3.5-5.5); Sodium, Blood 130 mmol/L (136-145)
== END | disposition home or self-care (01) ==
LOC: LAB SHORT 12:57
PROVIDERS: Internal Medicine Nephrology
DX: N18.30 Chronic kidney disease, stage 3 unspecified (principal); D63.1 Anemia in chronic kidney disease; R94.5 Abnormal results of liver function studies; R94.6 Abnormal results of thyroid function studies; R76.9 Abnormal immunological finding in serum, unspecified
CPT/HCPCS: 80069; 84443; 85018

== ENCOUNTER 2021-11-05 09:28 | Emergency (ER) | payer OTHER ==
[~2021-11-05] VITALS: Ht 157.5 cm; Wt 69.8 kg
[~2021-11-05 09:28] MED LIST changes: -PRED20 PO
[2021-11-05] MEDS ORDERED: TORSE20 PO (10:06)
[2021-11-05] MEDS ORDERED: PRED20 PO (10:08)
== END 2021-11-05 10:34 | disposition home or self-care (01) ==
LOC: ER 09:28
DX: L27.1 Localized skin eruption due to drugs and medicaments taken internally (principal); T36.8X5A Adverse effect of other systemic antibiotics, initial encounter
CPT/HCPCS: 99282

== ENCOUNTER → 2021-12-01 | Outpatient (CLI) | payer OTHER ==
[~2021-12-01] MED LIST changes: +PRED20 PO
[2021-12-02 22:20] LABS: Creatinine, Urine Random 58.2 mg/dL (27.00-270.00); Microalb/Creat Ratio UR, Rand 48.969 mg/g (0.000-30.000); Microalbumin, Random Urine 28.5 mg/L (0.000-20.000); Protein, Urine Random 14.5 mg/dL (0.0-11.9); Protein/Creat Ratio, Ur Random 0.2
== END | disposition home or self-care (01) ==
LOC: LAB SHORT 16:00 → LAB FUT 12-01 14:10
PROVIDERS: Internal Medicine Nephrology
DX: N18.30 Chronic kidney disease, stage 3 unspecified (principal); D63.1 Anemia in chronic kidney disease; G60.9 Hereditary and idiopathic neuropathy, unspecified; R76.9 Abnormal immunological finding in serum, unspecified; R94.5 Abnormal results of liver function studies
CPT/HCPCS: 82043; 82570; 84156

== ENCOUNTER 2021-12-17 17:01 | Emergency (ER) | payer OTHER ==
[~2021-12-17] VITALS: Ht 167.6 cm; Wt 68.5 kg
[2021-12-17 17:31] LABS: Hematocrit 40.3 % (33.0-51.0); Hemoglobin 13.4 g/dL (11.5-16.0); Mean Corpuscular HGB 33.6 pg (26.0-34.0); Mean Corpuscular HGB Conc 33.3 g/dL (31.5-36.5); Mean Corpuscular Volume 101 fL (80-100); Platelet Count 178 K/mm3 (150-400); RDW Coefficient Variation 14.3 % (11.7-14.2); RDW Standard Deviation 52.4 fL (35.1-46.3); Red Blood Cell Count 3.99 M/mm3 (3.80-5.20)
[2021-12-17 17:32] LABS: White Blood Cell Count 7.72 K/mm3 (4.00-11.30)
[2021-12-17 17:51] LABS: Alanine Aminotransfer (ALT/SGP 42 U/L (12-78); Albumin, Blood 3.1 g/dL (3.4-5.0); Albumin/Globulin Ratio 0.6 (0.8-1.8); Alk Phos 221 U/L (50-136); Anion Gap 9 mmol/L (6-16); Aspartate Aminotrans (AST/SGOT 41 U/L (12-37); Bilirubin, Total 1.5 mg/dL (0.1-1.0); Blood Urea Nitrogen 19 mg/dL (8-24); Bun/Creatinine Ratio 23.6 (12.0-20.0); CO2, Blood 29 mmol/L (21-32); Calcium, Blood 9.4 mg/dL (8.5-10.1); Chloride, Blood 98 mmol/L (98-108); Globulin, Blood 4.8 g/dL (2.2-4.0); Glomerular Filtration Rate >60 (60-); Glucose, Blood 128 mg/dL (70-99); Potassium, Blood 3.6 mmol/L (3.5-5.5); Sodium, Blood 136 mmol/L (136-145); Total Protein, Blood 7.9 g/dL (6.4-8.2)
[2021-12-17 18:04] LABS: BASOPHILS ABSOLUTE MAN 0.07 K/mm3 (0.00-0.23); BASOPHILS PERCENT MAN 1 % (0-2); EOSINOPHILS PERCENT MAN 0 % (0-6); LYMPHOCYTES % ATYPICAL MANUAL 2 % (0-0); LYMPHOCYTES ABSOLUTE MAN 1.54 K/mm3 (0.84-5.20); LYMPHOCYTES PERCENT MAN 18 % (21-46); MONOCYTES ABSOLUTE MAN 0.23 K/mm3 (0.16-1.47); MONOCYTES PERCENT MAN 3 % (4-13); NEUTROPHILS ABSOLUTE MAN 5.86 K/mm3 (1.96-9.15); SEG NEUTROPHILS PERCENT MAN 76 % (41-73); TOTAL CELLS COUNTED 100
[2021-12-17 18:47] LABS: Influenza A, PCR NEGATIVE (NEGATIVE); Influenza B, PCR NEGATIVE (NEGATIVE); Resp Syncytial Virus, PCR NEGATIVE (NEGATIVE); SARS-Cov-2 (COVID-19) PCR, MMC NEGATIVE (NEGATIVE)
[2021-12-17 18:47] LABS: Prothrombin Time Results 57.3 Sec (9.7-11.5)
[2021-12-17 19:03] LABS: International Normalized Ratio 6.15
[2021-12-17] MEDS ORDERED: POTA10T PO (19:12)
[2021-12-17] MEDS ORDERED: SODCHL1 PO (19:13)
[2021-12-17] MEDS ORDERED: LORA.5 PO (19:14)
[2021-12-17] MEDS ORDERED: MAGNESIUM GLYC120 MG PO (19:18)
== END 2021-12-17 21:45 | disposition home or self-care (01) ==
LOC: ER 17:01
PROVIDERS: Emergency Medicine
DX: I13.0 Hypertensive heart and chronic kidney disease with heart failure and stage 1 through stage 4 chronic kidney disease, or unspecified chronic kidney disease (principal); I50.9 Heart failure, unspecified; N18.30 Chronic kidney disease, stage 3 unspecified; E03.9 Hypothyroidism, unspecified; I48.91 Unspecified atrial fibrillation; Z79.01 Long term (current) use of anticoagulants; Z20.822 Contact with and (suspected) exposure to COVID-19
CPT/HCPCS: 0241U; 71045; 80053; 83880; 84484; 85025; 85610; 93005; 93010; J1940

== ENCOUNTER 2021-12-29 12:07 | Inpatient (IN) | payer OTHER, MEDICARE ==
[~2021-12-29] VITALS: Ht 170.2 cm; Wt 64.3 kg
[~2021-12-29 12:07] MED LIST changes: +LORA.5 PO; +MAGNESIUM GLYC120 MG PO
[2021-12-29 13:48] LABS: BASOPHILS ABSOLUTE AUTO 0.03 K/mm3 (0.00-0.23); BASOPHILS PERCENT AUTO 0 % (0-2); EOSINOPHILS PERCENT AUTO 0 % (0-6); Hematocrit 43.8 % (33.0-51.0); Hemoglobin 13.7 g/dL (11.5-16.0); IMMATURE GRAN ABSOLUTE AUTO 0.12 K/mm3 (0.00-0.10); IMMATURE GRAN PERCENT AUTO 1 % (0-1); LYMPHOCYTES ABSOLUTE AUTO 1.04 K/mm3 (0.84-5.20); LYMPHOCYTES PERCENT AUTO 6 % (21-46); MONOCYTES ABSOLUTE AUTO 1.17 K/mm3 (0.16-1.47); MONOCYTES PERCENT AUTO 7 % (4-13); Mean Corpuscular HGB Conc 31.3 g/dL (31.5-36.5); Mean Corpuscular Volume 106 fL (80-100); NEUTROPHILS ABSOLUTE AUTO 15.12 K/mm3 (1.96-9.15); NEUTROPHILS PERCENT AUTO 87 % (41-73); Platelet Count 138 K/mm3 (150-400); RDW Coefficient Variation 14.6 % (11.7-14.2); RDW Standard Deviation 55.8 fL (35.1-46.3); Red Blood Cell Count 4.15 M/mm3 (3.80-5.20); White Blood Cell Count 17.48 K/mm3 (4.00-11.30)
[2021-12-29 14:00] LABS: Mean Platelet Volume 13.5 fL (9.1-12.4)
[2021-12-29 14:04] LABS: International Normalized Ratio 3.16; Prothrombin Time Results 30.8 Sec (9.7-11.5)
[2021-12-29 14:43] LABS: Source, Urine Clean Catch
[2021-12-29 14:44] LABS: Albumin, Blood 3.3 g/dL (3.4-5.0); Albumin/Globulin Ratio 0.7 (0.8-1.8); Bilirubin, Total 2.6 mg/dL (0.1-1.0); Bun/Creatinine Ratio 28.5 (12.0-20.0); Calcium, Blood 10.5 mg/dL (8.5-10.1); Creatinine, Blood 0.95 mg/dL (0.40-1.00); Globulin, Blood 4.7 g/dL (2.2-4.0); Potassium, Blood 3.9 mmol/L (3.5-5.5)
[2021-12-29 14:51] LABS: Appearance, Urine Cloudy (Clear); Bilirubin, Urine Neg (Neg); Blood, Urine 4+ (Neg); Color, Urine Yellow (P-Yellow); Glucose Qualitative, Urine Neg (Neg); Ketones, Urine Neg (Neg); Leukocyte Esterase, Urine 2+ (Neg); Nitrite, Urine Neg (Neg); Protein, Urine 2+ (Neg); Urobilinogen, Urine NORM (Normal)
[2021-12-29] MEDS ORDERED: IPRAT-ALBUT 0.5-3 ML (14:59)
[2021-12-29 15:01] LABS: Bacteria Many /hpf; Red Blood Cells, Urine TNTC /hpf (0-2); Squamous Epithelial Cells Many /hpf (Few); White Blood Cells, Urine TNTC /hpf (0-5)
[2021-12-29 15:28] LABS: Influenza A, PCR NEGATIVE (NEGATIVE); Influenza B, PCR NEGATIVE (NEGATIVE); Resp Syncytial Virus, PCR NEGATIVE (NEGATIVE); SARS-Cov-2 (COVID-19) PCR, MMC NEGATIVE (NEGATIVE)
[2021-12-29] MEDS ORDERED: IPRAT-ALBUT 0.5-3 ML INH (20:29)
[2021-12-29] MEDS ORDERED: ACET500 PO (20:47)
[2021-12-29] MEDS ORDERED: THERA-D2000 UNIT PO (20:48)
[2021-12-29] MEDS ORDERED: MAGNESIUM OXID500 MG PO (20:50)
[2021-12-29] MEDS ORDERED: MIRALAX11910 PO (20:51)
--- NOTE | 2021-12-30 04:16 | NUR ---
Patient recieved from ER in stable condition. patient able to transfer herself from the stretcher to the bed with SBA. Skin inspection reveals well healed coccyx pressure injury. No acute skin issue noted. patient accompanied by her DIL Elsa who answered most medical questins. Patient lethargic and sleeping. patient able to swallow pills whole with water. Signs put up for her multiple food allergies and the kitchen notified. 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 Telemetry showing Afib overnight. Continous pulse ox applid without hypoxia overnight. All questions from Elsa and Talia answered.
[2021-12-30 04:41] LABS: BASOPHILS ABSOLUTE AUTO 0.03 K/mm3 (0.00-0.23); BASOPHILS PERCENT AUTO 0 % (0-2); EOSINOPHILS PERCENT AUTO 0 % (0-6); Hematocrit 38.4 % (33.0-51.0); Hemoglobin 12.8 g/dL (11.5-16.0); IMMATURE GRAN ABSOLUTE AUTO 0.14 K/mm3 (0.00-0.10); IMMATURE GRAN PERCENT AUTO 1 % (0-1); LYMPHOCYTES ABSOLUTE AUTO 1.64 K/mm3 (0.84-5.20); LYMPHOCYTES PERCENT AUTO 10 % (21-46); MONOCYTES ABSOLUTE AUTO 0.95 K/mm3 (0.16-1.47); MONOCYTES PERCENT AUTO 6 % (4-13); Mean Corpuscular HGB 33.5 pg (26.0-34.0); Mean Corpuscular HGB Conc 33.3 g/dL (31.5-36.5); NEUTROPHILS ABSOLUTE AUTO 14.51 K/mm3 (1.96-9.15); NEUTROPHILS PERCENT AUTO 84 % (41-73); Platelet Count 116 K/mm3 (150-400); RDW Coefficient Variation 14.6 % (11.7-14.2); RDW Standard Deviation 52.8 fL (35.1-46.3); Red Blood Cell Count 3.82 M/mm3 (3.80-5.20); White Blood Cell Count 17.27 K/mm3 (4.00-11.30)
[2021-12-30 04:43] LABS: Mean Corpuscular Volume 101 fL (80-100); Mean Platelet Volume 13.9 fL (9.1-12.4)
[2021-12-30 05:47] LABS: Albumin/Globulin Ratio 0.7 (0.8-1.8); Bun/Creatinine Ratio 36.6 (12.0-20.0); Creatinine, Blood 1.01 mg/dL (0.40-1.00); Globulin, Blood 4.1 g/dL (2.2-4.0); Potassium, Blood 3.7 mmol/L (3.5-5.5); Total Protein, Blood 7.1 g/dL (6.4-8.2)
[2021-12-30 08:51] LABS: International Normalized Ratio 3.98; Prothrombin Time Results 38.2 Sec (9.7-11.5)
--- NOTE | 2021-12-30 10:45 | NUR ---
Echocardiogram completed.
--- NOTE | 2021-12-30 16:13 | NUR ---
SHIFT SUMMARY PATIENT A&O 3-4, FORGETFUL AT TIMES AND VERY SLEEPY. 1PA TO BSC, ON RA RECEIVING BREATHING TX FROM RT. ON TELE READING A-FIB. 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 FLUIDS AND CONTINUOUS PULSE OX D/C'D. ECHO DONE, TOLERATED WELL. EXTENSIVE FOOD ALLERGIES. POOR APPETITE, STATING NOT FEELING HUNGRY. DAUGHTER IN LAW AT BEDSIDE MOST OF SHIFT. WANTS TO BE NOTIFIED OF ANY CHANGES. VSS. REPORT GIVEN TO RN TAKING OVER CARE.
--- NOTE | 2021-12-30 16:46 | NUR ---
RECEIVED REPORT AND ASSUMED CARE OF PATIENT FROM JEFFREY AT 1415.
[2021-12-31 03:09] LABS: HBSAG SCREEN Negative (Negative); HCV AB <0.1 (0.0-0.9); HEP A AB, IGM Negative (Negative); HEP B CORE AB, IGM Negative (Negative)
[2021-12-31 04:20] LABS: Hematocrit 37.9 % (33.0-51.0); Hemoglobin 12.9 g/dL (11.5-16.0); Mean Corpuscular HGB 33.3 pg (26.0-34.0); Mean Corpuscular Volume 98 fL (80-100); Mean Platelet Volume 14.1 fL (9.1-12.4); NRBC ABSOLUTE 0.02 K/mm3 (0.00-0.02); NRBC Auto 0.2 /100 WBC (0.0-0.2); Platelet Count 111 K/mm3 (150-400); RDW Coefficient Variation 14.6 % (11.7-14.2); Red Blood Cell Count 3.87 M/mm3 (3.80-5.20)
--- NOTE | 2021-12-31 04:39 | NUR ---
Patient with VSS on RA overnight. Telemetry in place. Recieved call from [employer] about PVC activity. Oleg and I evaluated her strip throughout the night. Patient in no acute distress. Patient able to ambulate to the bathroom tonight to void. Skin inspection reveals no acute skin issues. Patient alert and conversive overnight. Discussed her fluid restrictions. Removed all extra liquid from her room. Patient states understanding.
[2021-12-31 04:43] LABS: Prothrombin Time Results 46.6 Sec (9.7-11.5)
[2021-12-31 04:46] LABS: International Normalized Ratio 4.93
[2021-12-31 04:48] LABS: Free Thyroxine 1.59 ng/dL (0.70-1.60); Thyroid Stimulating Hormone 4.39 uIU/mL (0.360-4.800)
[2021-12-31 04:50] LABS: Albumin, Blood 2.8 g/dL (3.4-5.0); Albumin/Globulin Ratio 0.7 (0.8-1.8); Bilirubin, Total 1.6 mg/dL (0.1-1.0); Bun/Creatinine Ratio 49.8 (12.0-20.0); Calcium, Blood 9.8 mg/dL (8.5-10.1); Creatinine, Blood 0.8 mg/dL (0.40-1.00); Potassium, Blood 3.1 mmol/L (3.5-5.5); Total Protein, Blood 6.8 g/dL (6.4-8.2)
--- NOTE | 2021-12-31 04:59 | NUR ---
Dr. Vleez called about critical lab value of INR 4.93. Dr. Velez wants her coumadin held today.
--- NOTE | 2021-12-31 16:29 | NUR ---
SHIFT SUMMARY PATIENT IS ALERT AND ORIENTED X3, MILD FORGETFULNESS. PLEASANT AND COOPERATIVE WITH CARE. PATIENT IS ON ROOM AIR SATTING ABOVE 90% TELE DISCONTINUED TODAY. AFIB WITH PVC'S PRIOR TO DISCONTINUING TELE. NO CHEST PAIN OR SOB NOTED. PATIENT IS A 1 ASSIST TO THE BATHROOM WITH FWW AND GAITBELT. NO NEW SKIN ISSUES PRESENT TODAY. PATIENT HAS BEEN OUT OF BED AND IN THE CHAIR TODAY. PATIENT HAS A LIST OF ALLERGIES THAT CAN BE SEEN ABOVE THEIR BED. NO COMPLAINTS OF ANY PAIN OR DISCOMFORT. A 22GAUGE IV WAS PLACED IN LEFT UPPER ARM TODAY.IV IN LEFT WRIST DC'D WNL. IV ABX GIVEN. PATIENT AND DAUGHTER HAVE BEEN UPDATED WITH PLAN OF CARE. PATIENT MAY POSSIBLY DISCHARGE TOMORROOW. VITAL SIGNS STABLE. NO ACUTE EVENTS THIS SHIFT. CALL LIGHT WITHIN REACH, AND BED IN LOWEST POSITION.
--- NOTE | 2022-01-01 04:37 | NUR ---
PT WITHIN LIMITS ON FLUID RESTRICTION. AMBULATES WITH MINIMAL ASSISTANCE TO BATHROOM. PT REPORTS PAIN IN LOWER BACK FROM CHRONIC PAIN AND INABILITY TO SLEEP. PT GIVEN TRAMADOL FOR DISCOMFORT WHICH PATIENT STATES SHE TAKES AT HOME TO HELP HER SLEEP.
[2022-01-01 04:38] LABS: Prothrombin Time Results 38.9 Sec (9.7-11.5)
[2022-01-01 04:40] LABS: International Normalized Ratio 4.06
[2022-01-01] MEDS ORDERED: LEVSOD137 PO (11:21)
[2022-01-01] MEDS ORDERED: VISBIOME 112.51 EACH PO (11:25)
[2022-01-01] MEDS ORDERED: CEPH500 PO (11:26)
--- NOTE | 2022-01-01 12:59 | NUR ---
DISCHARGE NOTE PATIENT WAS DISCHARGED AT 1220 TODAY VIA WHEELCHAIR WITH DAUGHTER ANA PAULA. PATIENT VERBALIZED UNDERSTANDING OF DISCHARGE INSTRUCTIONS GIVEN. PATIENT'S DIL WILL CALL AND SET UP APPT WITH PCP SOON POSSIBLE. IV DISCONTINUED AT DISCHARGE WNL. VSS. NOTHING FURTHER TO REPORT.
== END 2022-01-01 12:26 | disposition home or self-care (01) | DRG 871 ==
LOC: ER 12:07 → MEDS 18:05
PROVIDERS: Emergency Medicine; Internal Medicine; Physician Assistant; ADMIT Internal Medicine
DX: A41.51 Sepsis due to Escherichia coli [E. coli] (principal); G93.41 Metabolic encephalopathy; N39.0 Urinary tract infection, site not specified; I13.0 Hypertensive heart and chronic kidney disease with heart failure and stage 1 through stage 4 chronic kidney disease, or unspecified chronic kidney disease; I48.20 Chronic atrial fibrillation, unspecified; E87.1 Hypo-osmolality and hyponatremia; I50.32 Chronic diastolic (congestive) heart failure; N17.9 Acute kidney failure, unspecified; E44.0 Moderate protein-calorie malnutrition; Z20.822 Contact with and (suspected) exposure to COVID-19; Z66 Do not resuscitate; R65.20 Severe sepsis without septic shock; F41.9 Anxiety disorder, unspecified; E03.9 Hypothyroidism, unspecified; K80.20 Calculus of gallbladder without cholecystitis without obstruction; E86.0 Dehydration; M54.9 Dorsalgia, unspecified; J45.909 Unspecified asthma, uncomplicated; R79.1 Abnormal coagulation profile; I07.1 Rheumatic tricuspid insufficiency; G89.29 Other chronic pain; I35.0 Nonrheumatic aortic (valve) stenosis; N18.30 Chronic kidney disease, stage 3 unspecified; Z79.890 Hormone replacement therapy; Z85.3 Personal history of malignant neoplasm of breast; Z90.710 Acquired absence of both cervix and uterus; Z90.11 Acquired absence of right breast and nipple; Z88.0 Allergy status to penicillin; Z88.8 Allergy status to other drugs, medicaments and biological substances; Z86.73 Personal history of transient ischemic attack (TIA), and cerebral infarction without residual deficits; Z98.890 Other specified postprocedural states; Z85.41 Personal history of malignant neoplasm of cervix uteri; Z79.01 Long term (current) use of anticoagulants; Z79.899 Other long term (current) drug therapy
CPT/HCPCS: 0241U; 36415; 71045; 76705; 80053; 80074; 81001; 83690; 83735; 83880; 84439; 84443; 84484; 85025; 85027; 85610; 87077; 87086; 87186; 93005; 93010; 93306; 94640; 94664; 94760; 94762; 96374; 97161; 97530; 99285-25; A9270; G0480; J0696; J7030; J7040

== ENCOUNTER 2022-01-09 11:47 | Observation (INO) | payer OTHER ==
[~2022-01-09] VITALS: Ht 165.1 cm; Wt 63.5 kg
[~2022-01-09 11:47] MED LIST changes: +ACET500 PO; +CEPH500 PO; +IPRAT-ALBUT 0.5-3 ML; +IPRAT-ALBUT 0.5-3 ML INH; +MAGNESIUM OXID500 MG PO; +MIRALAX11910 PO; +VISBIOME 112.51 EACH PO
[2022-01-09 13:31] LABS: BASOPHILS ABSOLUTE AUTO 0.07 K/mm3 (0.00-0.23); BASOPHILS PERCENT AUTO 0 % (0-2); EOSINOPHILS PERCENT AUTO 0 % (0-6); Hematocrit 43.6 % (33.0-51.0); Hemoglobin 14.5 g/dL (11.5-16.0); IMMATURE GRAN ABSOLUTE AUTO 0.17 K/mm3 (0.00-0.10); IMMATURE GRAN PERCENT AUTO 1 % (0-1); LYMPHOCYTES ABSOLUTE AUTO 0.76 K/mm3 (0.84-5.20); LYMPHOCYTES PERCENT AUTO 3 % (21-46); MONOCYTES ABSOLUTE AUTO 1.19 K/mm3 (0.16-1.47); MONOCYTES PERCENT AUTO 5 % (4-13); Mean Corpuscular HGB 32.7 pg (26.0-34.0); Mean Corpuscular HGB Conc 33.3 g/dL (31.5-36.5); Mean Corpuscular Volume 98 fL (80-100); NEUTROPHILS ABSOLUTE AUTO 23.37 K/mm3 (1.96-9.15); NEUTROPHILS PERCENT AUTO 91 % (41-73); NRBC ABSOLUTE 0.02 K/mm3 (0.00-0.02); NRBC Auto 0.1 /100 WBC (0.0-0.2); Platelet Count 98 K/mm3 (150-400); RDW Coefficient Variation 14.9 % (11.7-14.2); RDW Standard Deviation 53.5 fL (35.1-46.3); Red Blood Cell Count 4.44 M/mm3 (3.80-5.20); White Blood Cell Count 25.56 K/mm3 (4.00-11.30)
[2022-01-09 13:33] LABS: Base Excess Venous -2.4 mmol/L; Bicarbonate Venous 22.5 mmol/L (24.0-30.0); PCO2 Venous 38.8 mmHg (38-42); PO2 Venous 66.6 mmHg (38-42); pH Blood Venous 7.38 (7.34-7.37)
[2022-01-09 13:34] LABS: Source, Urine Straight Cath
[2022-01-09 13:39] LABS: Mean Platelet Volume 13.8 fL (9.1-12.4)
[2022-01-09 13:45] LABS: Appearance, Urine Clear (Clear); Bilirubin, Urine Neg (Neg); Blood, Urine Neg (Neg); Color, Urine Yellow (P-Yellow); Glucose Qualitative, Urine Neg (Neg); Ketones, Urine Neg (Neg); Leukocyte Esterase, Urine Neg (Neg); Nitrite, Urine Neg (Neg); Protein, Urine 1+ (Neg); Urobilinogen, Urine NORM (Normal)
[2022-01-09 13:48] LABS: Albumin, Blood 2.5 g/dL (3.4-5.0); Albumin/Globulin Ratio 0.6 (0.8-1.8); Bilirubin, Direct 1.5 mg/dL (0.0-0.3); Bilirubin, Indirect 2.4 mg/dL (0.1-0.7); Bilirubin, Total 3.9 mg/dL (0.1-1.0); Bun/Creatinine Ratio 59.3 (12.0-20.0); Calcium, Blood 11.1 mg/dL (8.5-10.1); Creatinine, Blood 0.98 mg/dL (0.40-1.00); Globulin, Blood 4.2 g/dL (2.2-4.0); Magnesium, Blood 2.5 mg/dL (1.6-2.4); Potassium, Blood 4.1 mmol/L (3.5-5.5); Total Protein, Blood 6.7 g/dL (6.4-8.2)
[2022-01-09 14:55] LABS: SARS-Cov-2 (COVID-19) PCR, MMC NEGATIVE (NEGATIVE)
--- NOTE | 2022-01-09 18:57 | NUR ---
PATIENT ARRIVED TO PCU AT 1830 TODAY. QUICK ADMIT DONE. PATIENT RESPONDS TO VERBAL STIMULI WITH A MUTTER OR A TURN OF THE HEAD. DAUGHTER MATTI AT BEDSIDE PER DAUGHTER SHE WAS TOLD THAT PATIENT COULD PASS IN THE HOSPITAL NO FAMILY WAS ABLE TO TAKE CARE OF HER AT HOME. WILL PASS ON TO TONE ARTIST APPRENTICE ABOUT FAMILY WISHES.
--- NOTE | 2022-01-09 23:06 | NUR ---
PT's DTR in Law left for home & PT has been medicated for s/sx of anxiety pain with helpful effect. SHe uses baseline lorazapam 1 mg prn . PT baseline has no home o2 22 l nc removed by PT x 1 .
--- NOTE | 2022-01-10 07:02 | NUR ---
PT CONTINUES COMFORT CARE & IT IS COMFORTABLE ON CURRENT RX. dtr IN LAW MATTI IN & SUPPORTIVE.
--- NOTE | 2022-01-10 10:00 | NUR ---
CALLED TO ROOM BY FAMILY. PATIENT STOPPED BREATHING. CHECKING HEART AND LUNGS NO SOUNDS. PARVEEN BARRAGAN CHARGE NOTIFIED TOD 0333 VERIFIED WITH SHANNON BARRAGAN. FAMILY IN ROOM.
== END 2022-01-10 09:50 ==
LOC: ER 11:47 → MEDS 11:48
PROVIDERS: Student in an Organized Health Care Education/Training Program; ADMIT Internal Medicine
DX: J18.9 Pneumonia, unspecified organism (principal); J91.8 Pleural effusion in other conditions classified elsewhere; I13.0 Hypertensive heart and chronic kidney disease with heart failure and stage 1 through stage 4 chronic kidney disease, or unspecified chronic kidney disease; N18.30 Chronic kidney disease, stage 3 unspecified; I50.42 Chronic combined systolic (congestive) and diastolic (congestive) heart failure; I48.20 Chronic atrial fibrillation, unspecified; Z51.5 Encounter for palliative care; I07.1 Rheumatic tricuspid insufficiency; J44.9 Chronic obstructive pulmonary disease, unspecified; E03.9 Hypothyroidism, unspecified; G92.8 Other toxic encephalopathy; J96.01 Acute respiratory failure with hypoxia; B17.9 Acute viral hepatitis, unspecified; G45.9 Transient cerebral ischemic attack, unspecified; D69.6 Thrombocytopenia, unspecified; Z66 Do not resuscitate; Z88.6 Allergy status to analgesic agent; Z88.1 Allergy status to other antibiotic agents; Z88.0 Allergy status to penicillin; Z85.3 Personal history of malignant neoplasm of breast; Z86.73 Personal history of transient ischemic attack (TIA), and cerebral infarction without residual deficits; Z87.440 Personal history of urinary (tract) infections; Z85.51 Personal history of malignant neoplasm of bladder; Z20.822 Contact with and (suspected) exposure to COVID-19
CPT/HCPCS: 36415; 36416; 71045; 80048; 80076; 82803; 83605; 83690; 83735; 83880; 84145; 85025; 93005; 93010; 96365; 96375; 99285-25; A9270; J0696; P9612; U0004